=== PATIENT | female | born 1995 | race Caucasian/White ===

== ENCOUNTER → 2019-02-24 | Outpatient (REF) | payer OTHER ==
[2019-02-24 20:44] LABS: CHLAMYDIA DNA AMPLIFICATION NEGATIVE (NEGATIVE); GC DNA AMPLIFICATION NEGATIVE (NEGATIVE)
== END ==
LOC: M SFHCLERA 14:41
PROVIDERS: ATTEND Nurse Practitioner Family
DX: R35.0 Frequency of micturition (principal)
CPT/HCPCS: 81002; 81025; 87070; 87086; 87661; G0463

== ENCOUNTER 2019-07-23 06:35 | Emergency (ER) | payer OTHER ==
[~2019-07-23] VITALS: Ht 170.2 cm; Wt 56.4 kg
[2019-07-23] MEDS ORDERED: NS 500 ML IV ONE (07:00)
[2019-07-23 07:22] LABS: BASO % 0.5 % (0.0-1.0); EOS # 0.2 10^3/uL (0.0-0.5); EOS % 2.4 % (0.0-3.0); HEMATOCRIT 41.8 % (36.0-47.0); HEMOGLOBIN 13.2 g/dl (12.0-15.5); LYMPH # 1.5 10^3/uL (1.5-5.0); LYMPH % 16.8 % (24.0-44.0); MEAN CORPUSCULAR HEMOGLOBIN 28.2 pg (27.0-33.0); MEAN CORPUSCULAR HGB CONC 31.6 g/dl (32.0-36.5); MEAN CORPUSCULAR VOLUME 89.3 fl (80.0-96.0); MONO # 0.6 10^3/uL (0.0-0.8); MONO % 6.9 % (0.0-5.0); NEUTROPHILS # 6.3 10^3/uL (1.5-8.5); NEUTROPHILS % 73.2 % (36.0-66.0); PLATELET COUNT, AUTOMATED 197 10^3/uL (150-450); RED BLOOD COUNT 4.68 10^6/uL (4.00-5.40); WHITE BLOOD COUNT 8.6 10^3/uL (4.0-10.0)
[2019-07-23] MEDS ORDERED: ACETAMINOPHEN 325 MG TAB PO ONE (07:30)
[2019-07-23] MEDS ORDERED: cefTRIAXone SOD 1 GM in D5W MINI-BAG PLUS 50 ML IV ONE (07:45)
[2019-07-23 07:48] LABS: ALBUMIN 4.2 GM/DL (3.2-5.2); ALT/SGPT 20 U/L (12-78); BILIRUBIN,DIRECT 0.2 MG/DL (0.0-0.2); BILIRUBIN,TOTAL 0.5 MG/DL (0.2-1.0); BLOOD UREA NITROGEN 17 MG/DL (7-18); CALCIUM LEVEL 8.8 MG/DL (8.5-10.1); CARBON DIOXIDE LEVEL 30 MEQ/L (21-32); CHLORIDE LEVEL 104 MEQ/L (98-107); CREATININE FOR GFR 0.65 MG/DL (0.55-1.30); GLOMERULAR FILTRATION RATE > 60.0 (>60); GLUCOSE, FASTING 90 MG/DL (70-100); LIPASE 74 U/L (73-393); POTASSIUM SERUM 3.7 MEQ/L (3.5-5.1); SODIUM LEVEL 138 MEQ/L (136-145); TOTAL PROTEIN 7.6 GM/DL (6.4-8.2)
[2019-07-23] MEDS ORDERED: CEFD1CAP8 PO (07:54)
[2019-07-23 08:39] VITALS: BP 110/72
[2019-07-24] MEDS ORDERED: DIPH25CA32 PO (14:37)
[2019-07-24] MEDS ORDERED: NAPR500T6 PO (14:37)
[2019-07-24] MEDS ORDERED: ONDA4TAB6 PO (17:17)
[2019-07-24] MEDS ORDERED: KEFL500C17 PO (17:17)
== END 2019-07-23 08:43 | disposition home or self-care (01) ==
LOC: M ED 06:35
DX: N39.0 Urinary tract infection, site not specified (principal); N10 Acute pyelonephritis; J02.9 Acute pharyngitis, unspecified; N80.9 Endometriosis, unspecified
CPT/HCPCS: 80048; 80076; 81001; 83690; 84702; 85025; 87088; 87186; 87880; 96365; 99284; J0696

== ENCOUNTER 2019-07-24 14:29 | Emergency (ER) | payer OTHER ==
[~2019-07-24] VITALS: Ht 170.2 cm; Wt 59.1 kg
[~2019-07-24 14:29] MED LIST: CEFD1CAP8 PO
[2019-07-24] MEDS ORDERED: DIPH25CA32 PO (14:37)
[2019-07-24] MEDS ORDERED: NAPR500T6 PO (14:37)
[2019-07-24] MEDS ORDERED: ONDANSETRON 4 MG ORAL DISINTEGRATING TAB PO ONE (17:15)
[2019-07-24] MEDS ORDERED: CEPHALEXIN 500 MG CAP PO ONE (17:15)
[2019-07-24] MEDS ORDERED: KEFL500C17 PO (17:17)
[2019-07-24] MEDS ORDERED: ONDA4TAB6 PO (17:17)
[2019-07-24 17:21] VITALS: BP 115/65
== END 2019-07-24 17:30 | disposition home or self-care (01) ==
LOC: M ED 14:29
DX: R21 Rash and other nonspecific skin eruption (principal); N39.0 Urinary tract infection, site not specified; T36.1X5A Adverse effect of cephalosporins and other beta-lactam antibiotics, initial encounter; R51 Headache; R11.2 Nausea with vomiting, unspecified; R19.7 Diarrhea, unspecified; Z88.1 Allergy status to other antibiotic agents; Z88.8 Allergy status to other drugs, medicaments and biological substances; Z88.6 Allergy status to analgesic agent
CPT/HCPCS: 99283; Q0162

== ENCOUNTER 2019-07-30 18:34 | Emergency (ER) | payer OTHER ==
[~2019-07-30] VITALS: Ht 170.2 cm; Wt 56.9 kg
[2019-07-30 18:34] VITALS: BP 107/67
[~2019-07-30 18:34] MED LIST changes: +DIPH25CA32 PO; +KEFL500C17 PO; +NAPR500T6 PO; +ONDA4TAB6 PO
[2019-07-30] MEDS ORDERED: PYRI1TAB5 PO (19:08)
== END 2019-07-30 19:18 | disposition home or self-care (01) ==
LOC: M ED 18:34
DX: N34.2 Other urethritis (principal); Z88.1 Allergy status to other antibiotic agents; Z79.899 Other long term (current) drug therapy

== ENCOUNTER 2019-08-18 12:31 | Emergency (ER) | payer OTHER ==
[~2019-08-18 12:31] MED LIST changes: +PYRI1TAB5 PO
[2019-08-18 13:25] LABS: BASO # 0.1 10^3/uL (0.0-0.2); BASO % 0.6 % (0.0-1.0); EOS # 0.2 10^3/uL (0.0-0.5); EOS % 2.5 % (0.0-3.0); HEMOGLOBIN 12.5 g/dl (12.0-15.5); LYMPH # 1.4 10^3/uL (1.5-5.0); LYMPH % 16.3 % (24.0-44.0); MEAN CORPUSCULAR HEMOGLOBIN 29.1 pg (27.0-33.0); MEAN CORPUSCULAR HGB CONC 32.1 g/dl (32.0-36.5); MEAN CORPUSCULAR VOLUME 90.7 fl (80.0-96.0); MONO # 0.6 10^3/uL (0.0-0.8); MONO % 7.1 % (0.0-5.0); NEUTROPHILS # 6.2 10^3/uL (1.5-8.5); NEUTROPHILS % 73.3 % (36.0-66.0); PLATELET COUNT, AUTOMATED 225 10^3/uL (150-450); WHITE BLOOD COUNT 8.4 10^3/uL (4.0-10.0)
[2019-08-18] MEDS ORDERED: PYRI1TAB5 PO (14:07)
[2019-08-18] MEDS ORDERED: CIPR-249 PO (14:07)
[2019-08-18] MEDS ORDERED: BACI50OI TOP (14:10)
[2019-08-18] MEDS ORDERED: CIPROFLOXACIN 500MG TABLET PO ONE (14:15)
[2019-08-18] MEDS ORDERED: PHENAZOPYRIDINE 100 MG TAB PO ONE (14:15)
[2019-08-18 14:22] VITALS: BP 112/68
== END 2019-08-18 14:24 | disposition home or self-care (01) ==
LOC: M ED 12:31
DX: N39.0 Urinary tract infection, site not specified (principal); T21.55XA Corrosion of first degree of buttock, initial encounter; T32.0 Corrosions involving less than 10% of body surface; X58.XXXA Exposure to other specified factors, initial encounter; Y92.89 Other specified places as the place of occurrence of the external cause; N73.9 Female pelvic inflammatory disease, unspecified; Z88.1 Allergy status to other antibiotic agents

== ENCOUNTER → 2019-09-23 | Outpatient (CLI) | payer OTHER ==
[~2019-09-23] MED LIST changes: +BACI50OI TOP; +CIPR-249 PO
--- NOTE | 2019-10-17 14:34 | PFTRPT ---
Visit Date: 09/23/2019 Second ID: [id number] Referring Doctor: Kerline Castrejon Height: 65.00 Inches Weight: 125.00 Lbs BSA: 1.62 Diagnosis: R05 QUALITY: Study of excellent technical quality. PROCEDURE: Under protocol, methacholine was administered. At a dose of 2.5 mg or 13.875 CDUs, a 22% decline of the FEV1 was noted. PC of 1.35 is significant. Flow rates did return to baseline post-bronchodilator administration. IMPRESSION: Positive methacholine challenge study. MTDD
--- NOTE | 2019-10-18 15:42 | METHCHAL ---
ORDERED BY: Kerline Perkins RN, ANP QUALITY: Study of excellent technical quality. PROCEDURE: Under protocol, methacholine was administered. A dose of 2.5 mg or 13.975 CDUs, a 22% decline of the FEV1 was noted. PC of 1.35 is significant. Flow rates did return to baseline post-bronchodilator administration. IMPRESSION: Positive methacholine challenge study MTDD
== END ==
LOC: M CARPUL 09:00
PROVIDERS: ATTEND Nurse Practitioner Adult Health
DX: R05 Cough (principal)